=== PATIENT | male | born 1975 | race American Indian/Alaskan Native ===

== ENCOUNTER 2018-07-09 18:24 | Inpatient (IN) | payer MEDICARE ==
[2018-07-09] MEDS ORDERED: BENADRYL IM PRN (19:17)
[2018-07-09 19:18] LABS: Basophils % (Auto) 0.4 % (0.0-1.8); Eosinophils # (Auto) 0.2 K/mm3 (0.0-0.4); Eosinophils % (Auto) 2.1 % (0.0-4.3); Hematocrit 46.6 % (35.5-45.6); Hemoglobin 15.4 gm/dl (11.8-15.2); Lymphocytes # (Auto) 3.8 K/mm3 (1.2-5.4); Lymphocytes % (Auto) 39.6 % (13.4-35.0); Mean Corpuscular HGB Conc 33 % (32-34); Mean Corpuscular Volume 90 fl (84-94); Monocytes # (Auto) 0.7 K/mm3 (0.0-0.8); Monocytes % (Auto) 6.8 % (0.0-7.3); Platelet Count 266 K/mm3 (140-440); Red Blood Count 5.19 M/mm3 (3.65-5.03); Red Cell Distribution Width 16.7 % (13.2-15.2)
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
[2018-07-09 19:34] LABS: BUN/Creatinine Ratio 8; Blood Urea Nitrogen 9 mg/dL (9-20); Calcium 9.2 mg/dL (8.4-10.2); Hemolysis Index 4
--- NOTE | 2018-07-09 20:34 | XRay Report ---
FINAL REPORT EXAM: XR CHEST 1V AP HISTORY: cough TECHNIQUE: Frontal portable view of the chest Comparison: None FINDINGS: There is bilateral hypoinflation. There appear to be patchy areas of pulmonary consolidation in both lungs. There is no evidence of pneumothorax and no definite evidence of pleural effusion. There is prominence of the pulmonary venous vasculature suggestive of pulmonary venous congestion. The cardiac silhouette appears to be enlarged. This may be exaggerated by portable technique and hypo inflation. The bony structures are unremarkable. Visualization detail of the thoracic spine is limited. IMPRESSION: 1. Hypoinflation with the appearance of areas of bilateral pulmonary consolidation. Atelectasis versu s infiltrates versus pulmonary edema. 2. Enlarged cardiac silhouette and evidence of pulmonary venous congestion. PA and lateral views of the chest or CT chest may be helpful for further evaluation.
[2018-07-09] MEDS ORDERED: VITAMIN B-1 100 MG, FOLVITE 1 MG, INFUVITE 10 ML, MAGNESIUM SULFATE 2 GM in NACL 0.9% 1... IV ONE (20:52)
[2018-07-09 21:30] LABS: Bilirubin,Urine NEG (Negative); Blood,Urine NEG (Negative); Color,Urine Colorless (Yellow); Protein,Urine <15 mg/dL mg/dL (Negative); RBC,Urine < 1.0 /HPF (0.0-6.0); Urobilinogen,Urine < 2.0 mg/dL (<2.0); WBC,Urine < 1.0 /HPF (0.0-6.0)
[2018-07-09 21:39] LABS: Amphetamine Screen,Urine PRESUMPTIVE NEGATIVE; Benzodiazepines Screen,Urine PRESUMPTIVE NEGATIVE; Cannabinoid Screen,Urine PRESUMPTIVE NEGATIVE; Cocaine Screen,Urine PRESUMPTIVE NEGATIVE; Methadone Screen,Urine PRESUMPTIVE NEGATIVE; Opiate Screen,Urine PRESUMPTIVE NEGATIVE
[2018-07-09] MEDS ORDERED: VITAMIN B-1 PO ONE (22:00)
[2018-07-09] MEDS ORDERED: FOLVITE 1 MG, INFUVITE 10 ML, MAGNESIUM SULFATE 2 GM in NACL 0.9% 1000 ML 1,000 ML IV ONE (22:00)
[2018-07-09] MEDS ORDERED: HALDOL IM PRN (23:07)
--- NOTE | 2018-07-10 00:23 | Cat Scan Report ---
FINAL REPORT EXAM: CT HEAD/BRAIN WO CON HISTORY: intoxicated, facial abrasion, altered mental statu COMPARISON: None available. TECHNIQUE: Axial images obtained skull base through vertex. FINDINGS: No acute intracranial hemorrhage, midline shift or pathologic extra axial fluid collection. Ventricle s and cisterns are normal in size and configuration for the patient's age. Perez-white differentiation preserved. Calvarium grossly intact. Ocular globes are grossly unremarkable. Moderate to severe poly poid mucosal thickening of the maxillary sinuses and ethmoid air cells. Mastoid air cells are clear. IMPRESSION: No grossly acute intracranial abnormality. Moderate to severe paranasal sinus disease.
--- NOTE | 2018-07-10 00:30 | Cat Scan Report ---
FINAL REPORT EXAM: CT CERVICAL SPINE WO CON HISTORY: intoxicated, facial abrasion, altered mental statu COMPARISON: None available. TECHNIQUE: Axial images obtained through the cervical spine. Additional sagittal and coronal reforma tted images were obtained. FINDINGS: Straightening of the normal lordotic curvature of the cervical spine. Cervical vertebral body heights are preserved. No acute fracture or traumatic subluxation. Odontoid process, articular pillars and o ccipital condyles are intact. No significant bony encroachment upon the canal or foramen. IMPRESSION: No acute fracture or subluxation of the cervical spine. There is straightening of the normal lordotic curvature which may relate to patient positioning or muscle spasm.
--- NOTE | 2018-07-10 01:23 | Cat Scan Report ---
FINAL REPORT EXAM: CT CHEST WO CON HISTORY: cough, abnormal chest x-ray COMPARISON: Chest x-ray from yesterday. TECHNIQUE: Contiguous axial images were obtained. Additional sagittal and coronal reformatted images were obtained. FINDINGS: Heart borderline enlarged. Thoracic aorta normal in caliber. There are borderline and mildly enlarged intrathoracic lymph nodes. For example there is a prevascular lymph node on the left measuring 17 x 10 millimeters. No enlarged axillary lymph nodes. No obstructive lesion centrally within the tracheob ronchial tree. Nodular airspace opacity with a bronchovascular distribution involving the right upper lobe. Small no dular airspace opacity medial margin right lower lobe. There are scattered linear ground-glass opacit ies throughout the lungs likely related to atelectasis. Lungs are underinflated. No pleural effusion. Visualized upper abdomen is grossly unremarkable. No pneumothorax or pneumomediastinum. Moderate dege nerative changes of the thoracic spine. Infrarenal IVC filter is in place. IMPRESSION: Findings concerning for pneumonia involving the right upper lobe and right lower lobe. Heart borderline enlarged. Borderline and mildly enlarged intrathoracic lymph nodes which may be reactive.
[2018-07-10] MEDS ORDERED: ZOSYN/NS 4.5GM/100ML 4.5 GM/100 ML VIAL IV ONE (01:34)
[2018-07-10] MEDS ORDERED: SODIUM CHLORIDE FLUSH SYRINGE 10 ML IV PRN (03:22)
[2018-07-10] MEDS ORDERED: ZOFRAN IV PRN (03:22)
[2018-07-10] MEDS ORDERED: TYLENOL PO PRN (03:22)
[2018-07-10 04:23] LABS: Basophils # (Auto) 0.1 K/mm3 (0.0-0.1); Basophils % (Auto) 0.9 % (0.0-1.8); Eosinophils # (Auto) 0.2 K/mm3 (0.0-0.4); Eosinophils % (Auto) 1.2 % (0.0-4.3); Hematocrit 42.8 % (35.5-45.6); Hemoglobin 13.8 gm/dl (11.8-15.2); Lymphocytes # (Auto) 4.5 K/mm3 (1.2-5.4); Mean Corpuscular HGB Conc 32 % (32-34); Mean Corpuscular Volume 91 fl (84-94); Monocytes # (Auto) 0.6 K/mm3 (0.0-0.8); Monocytes % (Auto) 4.5 % (0.0-7.3); Platelet Count 261 K/mm3 (140-440); Red Blood Count 4.71 M/mm3 (3.65-5.03); Red Cell Distribution Width 16.9 % (13.2-15.2)
[2018-07-10 04:45] LABS: BUN/Creatinine Ratio 8; Blood Urea Nitrogen 7 mg/dL (9-20); Calcium 8.2 mg/dL (8.4-10.2); Hemolysis Index 105
--- NOTE | 2018-07-10 05:59 | History and Physical Report ---
History of Present Illness Date of examination: 07/10/18 Date of admission: 07/10/18 03:22 History of present illness: 42-year-old man with a history of alcohol abuse was brought to the emergency room for evaluation. Patient was sedated in the emergency room because he was combative, unable to get a history. Review of systems unobtainable, the patient is being admitted for pneumonia PAST MEDICAL HISTORY: Alcohol abuse, unknown other medical problems PAST SURGICAL HISTORY: Unknown SOCIAL HISTORY:: + alcohol FAMILY HISTORY: Hypertension Medications and Allergies Allergies Allergy/AdvReac Type Severity Reaction Status Date / Time No Known Allergies Allergy Unverified 07/21/15 13:01 Active Meds: Active Medications Acetaminophen (Tylenol) 650 mg PO Q4H PRN PRN Reason: Pain MILD(1-3)/Fever >100.5/CORTEZ Albuterol/Ipratropium (Duoneb *Not For Prn Use*) 1 ampul IH Q6HRT GENIA Enoxaparin Sodium (Lovenox) 40 mg SUB-Q QDAY GENIA Ondansetron HCl (Zofran) 4 mg IV Q8H PRN PRN Reason: Nausea And Vomiting Sodium Chloride (Sodium Chloride Flush Syringe 10 Ml) 10 ml IV BID GENIA Sodium Chloride (Sodium Chloride Flush Syringe 10 Ml) 10 ml IV PRN PRN PRN Reason: LINE FLUSH Exam - Physical Exam Narrative exam: General Apperance: The patient lying in bed, breathing comfortable HEENT: Normocephalic, atraumatic. Pupils equally round and reactive to light, EOMI, no sclericterus or JVD or thyromegaly or nodule. , no carotid bruit, mucous membranes moist, no exudate or erythema Heart: S1-S2, regular is rhythm Lungs: Clear to auscultation bilaterally, breathing comfortable Abdomen: Positive bowel sounds, soft, nontender, nondistended, no organomegaly Extremities: No edema cyanosis clubbing Skin: no rash, nodule, warm and dry Neuro: sedated - Constitutional Vitals: Temp Pulse Resp BP Pulse Ox 97.5 F L 101 H 15 127/44 91 07/10/18 05:46 07/10/18 03:00 07/10/18 03:30 07/10/18 04:16 07/10/18 04:16 Results - Labs CBC & Chem 7: 07/10/18 04:04 07/10/18 04:04 Labs: Abnormal lab results 07/09/18 07/09/18 07/09/18 Range/Units 19:07 19:07 19:07 WBC (4.5-11.0) K/mm3 RBC (3.65-5.03) M/mm3 Hgb (11.8-15.2) gm/dl Hct (35.5-45.6) % RDW (13.2-15.2) % Lymph % (Auto) (13.4-35.0) % Seg Neutrophils # (1.8-7.7) K/mm3 Potassium (3.6-5.0) mmol/L Chloride (98-107) mmol/L BUN (9-20) mg/dL Glucose (75-100) mg/dL Calcium (8.4-10.2) mg/dL NT-Pro-B Natriuret Pep (0-450) pg/mL Ur Specific [place] (1.003-1.030) Salicylates < 0.3 L (2.8-20.0) mg/dL Acetaminophen < 5.0 L (10.0-30.0) ug/mL Plasma/Serum Alcohol 0.36 H (0-0.07) % 07/09/18 07/09/18 07/10/18 Range/Units 19:07 21:08 01:22 WBC (4.5-11.0) K/mm3 RBC 5.19 H (3.65-5.03) M/mm3 Hgb 15.4 H (11.8-15.2) gm/dl Hct 46.6 H (35.5-45.6) % RDW 16.7 H (13.2-15.2) % Lymph % (Auto) 39.6 H (13.4-35.0) % Seg Neutrophils # (1.8-7.7) K/mm3 Potassium (3.6-5.0) mmol/L Chloride (98-107) mmol/L BUN (9-20) mg/dL Glucose (75-100) mg/dL Calcium (8.4-10.2) mg/dL NT-Pro-B Natriuret Pep 450.7 H (0-450) pg/mL Ur Specific [place] 1.001 L (1.003-1.030) Salicylates (2.8-20.0) mg/dL Acetaminophen (10.0-30.0) ug/mL Plasma/Serum Alcohol (0-0.07) % 07/10/18 07/10/18 Range/Units 04:04 04:04 WBC 14.4 H (4.5-11.0) K/mm3 RBC (3.65-5.03) M/mm3 Hgb (11.8-15.2) gm/dl Hct (35.5-45.6) % RDW 16.9 H (13.2-15.2) % Lymph % (Auto) (13.4-35.0) % Seg Neutrophils # 9.0 H (1.8-7.7) K/mm3 Potassium 5.7 H D (3.6-5.0) mmol/L Chloride 109.1 H (98-107) mmol/L BUN 7 L (9-20) mg/dL Glucose 108 H (75-100) mg/dL Calcium 8.2 L (8.4-10.2) mg/dL NT-Pro-B Natriuret Pep (0-450) pg/mL Ur Specific [place] (1.003-1.030) Salicylates (2.8-20.0) mg/dL Acetaminophen (10.0-30.0) ug/mL Plasma/Serum Alcohol (0-0.07) % - Imaging and Cardiology Chest x-ray: report reviewed CT scan - chest: report reviewed CT Scan - head: report reviewed Assessment and Plan CT spine reviewed Assessment Sepsis Pneumonia, possible aspiration Alcohol intoxication Morbid obesity Plan Admit to medicine Start IV Zosyn, IV fluids, nebulizer treatments DVT prophylaxis
[2018-07-10] MEDS ORDERED: NACL 0.9% 1000 ML 1,000 ML IV SCH (06:00)
[2018-07-10] MEDS ORDERED: KIONEX PO ONE (06:00)
[2018-07-10] MEDS ORDERED: ZOSYN/NS 3.375GM/50ML 3.375 GM/50 ML BAG IV SCH (06:00)
[2018-07-10 07:52] LABS: BUN/Creatinine Ratio 9; Blood Urea Nitrogen 7 mg/dL (9-20); Calcium 8.3 mg/dL (8.4-10.2); Hemolysis Index 37
[2018-07-10] MEDS ORDERED: ATIVAN PO PRN ×3 (08:00→08:05)
--- NOTE | 2018-07-10 08:07 | Progress Note ---
Assessment and Plan Assessment and plan: Patient is a 42 yo man with a history of alcohol who presented to [facility] ED with AMS due to alcohol intoxication with BAL of 0.36. Nurse called me to report that patient is agitated, refusing IV placement and demanding to go home. Demanding food. -Acute toxic metabolic encephalopathy related to Alcohol -Alcohol intoxication: treat with Ativan, start CIWA protocol -Multilobar RUL and RLL Aspiration Pneumonia: iv zosyn ordered but patient refusing IVs, so I ordered PO Levaquin. -Sepsis Pneumonia, poa: treat with Abx, refusing IV fluids prolonged inpatient services 32 minutes History Interval history: Patient was seen and examined. Follow-up on current diagnosis of AMS due to alcohol. Overnight uneventful. Patient denies any chest pain, shortness breath, nausea/vomiting or severe headaches. Imaging, nursing note, chart, labs and old chart reviewed. Discussed with patient. Hospitalist Physical - Physical exam Narrative exam: Gen: WDWN, NAD, Awake, Alert, Orientated, bmi >40 HEENT: , abrasion on face, EOMI, PERRL, OP Clear Neck: supple, no adenopathy, no thyromegaly, no JVD CVS/Heart: Regular tachycardia, normal S1S2, pulses present bilaterally Chest/Lungs: coarse bs right lung, Symmetrical chest expansion, good air entry bilaterally GI/Abdomen: soft, NTND, good bowel sounds, no guarding or rebound /Bladder: no suprapubic tenderness, no CVA or paraspinal tenderness Extermity/Skin: no c/c/e, no obvious rash MSK: FROM x 4 Neuro: CN 2-12 grossly intact, no new focal deficits Psych: agitated - Constitutional Vitals: Temp Pulse Resp BP Pulse Ox 97.5 F L 101 H 15 127/44 91 07/10/18 05:46 07/10/18 03:00 07/10/18 03:30 07/10/18 04:16 07/10/18 04:16 Results - Labs CBC & Chem 7: 07/10/18 04:04 07/10/18 07:23 Labs: Laboratory Last Values WBC 14.4 K/mm3 (4.5-11.0) H 07/10/18 04:04 RBC 4.71 M/mm3 (3.65-5.03) 07/10/18 04:04 Hgb 13.8 gm/dl (11.8-15.2) 07/10/18 04:04 Hct 42.8 % (35.5-45.6) 07/10/18 04:04 MCV 91 fl (84-94) 07/10/18 04:04 MCH 29 pg (28-32) 07/10/18 04:04 MCHC 32 % (32-34) 07/10/18 04:04 RDW 16.9 % (13.2-15.2) H 07/10/18 04:04 Plt Count 261 K/mm3 (140-440) 07/10/18 04:04 Lymph % (Auto) 31.0 % (13.4-35.0) 07/10/18 04:04 Hand % (Auto) 4.5 % (0.0-7.3) 07/10/18 04:04 Eos % (Auto) 1.2 % (0.0-4.3) 07/10/18 04:04 Baso % (Auto) 0.9 % (0.0-1.8) 07/10/18 04:04 Lymph # 4.5 K/mm3 (1.2-5.4) 07/10/18 04:04 Hand # 0.6 K/mm3 (0.0-0.8) 07/10/18 04:04 Eos # 0.2 K/mm3 (0.0-0.4) 07/10/18 04:04 Baso # 0.1 K/mm3 (0.0-0.1) 07/10/18 04:04 Seg Neutrophils % 62.4 % (40.0-70.0) 07/10/18 04:04 Seg Neutrophils # 9.0 K/mm3 (1.8-7.7) H 07/10/18 04:04 Sodium 145 mmol/L (137-145) 07/10/18 07:23 Potassium 4.9 mmol/L (3.6-5.0) 07/10/18 07:23 Chloride 110.9 mmol/L (98-107) H 07/10/18 07:23 Carbon Dioxide 21 mmol/L (22-30) L 07/10/18 07:23 Anion Gap 18 mmol/L 07/10/18 07:23 BUN 7 mg/dL (9-20) L 07/10/18 07:23 Creatinine 0.8 mg/dL (0.8-1.5) 07/10/18 07:23 Estimated GFR > 60 ml/min 07/10/18 07:23 BUN/Creatinine Ratio 9 % 07/10/18 07:23 Glucose 82 mg/dL (75-100) 07/10/18 07:23 Calcium 8.3 mg/dL (8.4-10.2) L 07/10/18 07:23 NT-Pro-B Natriuret Pep 450.7 pg/mL (0-450) H 07/10/18 01:22 Urine Color Colorless (Yellow) 07/09/18 21:08 Urine Turbidity Clear (Clear) 07/09/18 21:08 Urine pH 6.0 (5.0-7.0) 07/09/18 21:08 Ur Specific [place] 1.001 (1.003-1.030) L 07/09/18 21:08 Urine Protein <15 mg/dl mg/dL (Negative) 07/09/18 21:08 Urine Glucose (UA) Neg mg/dL (Negative) 07/09/18 21:08 Urine Ketones Neg mg/dL (Negative) 07/09/18 21:08 Urine Blood Neg (Negative) 07/09/18 21:08 Urine Nitrite Neg (Negative) 07/09/18 21:08 Urine Bilirubin Neg (Negative) 07/09/18 21:08 Urine Urobilinogen < 2.0 mg/dL (<2.0) 07/09/18 21:08 Ur Leukocyte Esterase Neg (Negative) 07/09/18 21:08 Urine WBC (Auto) < 1.0 /HPF (0.0-6.0) 07/09/18 21:08 Urine RBC (Auto) < 1.0 /HPF (0.0-6.0) 07/09/18 21:08 U Epithel Cells (Auto) < 1.0 /HPF (0-13.0) 07/09/18 21:08 Salicylates < 0.3 mg/dL (2.8-20.0) L 07/09/18 19:07 Urine Opiates Screen Presumptive negative 07/09/18 21:08 Urine Methadone Screen Presumptive negative 07/09/18 21:08 Acetaminophen < 5.0 ug/mL (10.0-30.0) L 07/09/18 19:07 Ur Barbiturates Screen Presumptive negative 07/09/18 21:08 Ur Phencyclidine Scrn Presumptive negative 07/09/18 21:08 Ur Amphetamines Screen Presumptive negative 07/09/18 21:08 U Benzodiazepines Scrn Presumptive negative 07/09/18 21:08 Urine Cocaine Screen Presumptive negative 07/09/18 21:08 U Marijuana (THC) Screen Presumptive negative 07/09/18 21:08 Drugs of Abuse Note Disclamer 07/09/18 21:08 Plasma/Serum Alcohol 0.36 % (0-0.07) H 07/09/18 19:07
[2018-07-10] MEDS ORDERED: HALDOL IM PRN (08:30)
[2018-07-10] MEDS: DUONEB *Not for PRN Use IH SCH ×3 (09:02→19:12)
[2018-07-10] MEDS ORDERED: LOVENOX SUB-Q SCH (10:00)
[2018-07-10] MEDS: SODIUM CHLORIDE FLUSH SYRINGE 10 ML IV SCH ×2 (10:04→22:26)
[2018-07-10] MEDS: LEVAQUIN PO SCH (10:04)
[2018-07-10 14:36] LABS: BUN/Creatinine Ratio 9; Blood Urea Nitrogen 8 mg/dL (9-20); Calcium 8.6 mg/dL (8.4-10.2); Hemolysis Index 6
[2018-07-11] MEDS: DUONEB *Not for PRN Use IH SCH ×3 (02:02→13:45)
[2018-07-11 04:09] VITALS: BP 135/70
--- NOTE | 2018-07-11 07:07 | Progress Note ---
Assessment and Plan Assessment and plan: Patient is a 42 yo man with a history of tobacco dependency and alcohol abuse who presented to [facility] ED with AMS due to alcohol intoxication with BAL of 0.36. Patient continues to be uncooperative. He has no IV line access because he refuses. Overnight, his O2 sat dropped to 76% while sleeping but increased to 90% when he was awaken. He refused O2. He needs GABRIELE outpatient sleep study -Acute toxic metabolic encephalopathy related to Alcohol -Acute on chronic hypoxic respiratory failure most likely due to GABRIELE, most likely poa and chronic, undiagnosised, he refused O2 supplementation: GABRIELE respiratory therapy assessment ordered, Outpatient Pulm referral -Alcohol intoxication under 2013: treat with Ativan, started CIWA protocol, Mental health consult, [address] Souza, ED physician -Multilobar RUL and RLL Aspiration Pneumonia: iv zosyn ordered but patient refusing IVs, so I ordered PO Levaquin. -Sepsis Pneumonia, poa: treat with Abx, refusing IV fluids -Tobacco dependency: counseled on stopping, not well received Disposition: will discharge soon History Interval history: Patient was seen and examined. Follow-up on current diagnosis of AMS due to alcohol. Overnight eventful, sleep apnea type spells with loud snoring and O2 desat down to 76% per Nurse Emerita, whom I spoke with, patient refused to wear O2. Patient denies any chest pain, shortness breath, nausea/vomiting or severe headaches. Imaging, nursing note, chart, labs and old chart reviewed. Discussed with patient. Patient is under 2013 and was seen by Mental Health Hatch Supervisor yesterday. Hospitalist Physical - Physical exam Narrative exam: Gen: WDWN, NAD, Awake, Alert, Orientated, bmi 49 HEENT: EOMI, PERRL, OP Clear Neck: supple, no adenopathy, no thyromegaly, no JVD CVS/Heart: Regular tachycardia, normal S1S2, pulses present bilaterally Chest/Lungs: coarse bs right lung, Symmetrical chest expansion, good air entry bilaterally GI/Abdomen: soft, NTND, good bowel sounds, no guarding or rebound /Bladder: no suprapubic tenderness, no CVA or paraspinal tenderness Extermity/Skin: no c/c/e, no obvious rash MSK: FROM x 4 Neuro: CN 2-12 grossly intact, no new focal deficits Psych: poor insight - Constitutional Vitals: Temp Pulse Resp BP Pulse Ox 97.9 F 81 13 135/70 98 07/11/18 04:08 07/11/18 05:01 07/11/18 05:01 07/11/18 05:01 07/11/18 05:01 Results - Labs CBC & Chem 7: 07/10/18 04:04 07/10/18 14:00 Labs: Laboratory Last Values WBC 14.4 K/mm3 (4.5-11.0) H 07/10/18 04:04 RBC 4.71 M/mm3 (3.65-5.03) 07/10/18 04:04 Hgb 13.8 gm/dl (11.8-15.2) 07/10/18 04:04 Hct 42.8 % (35.5-45.6) 07/10/18 04:04 MCV 91 fl (84-94) 07/10/18 04:04 MCH 29 pg (28-32) 07/10/18 04:04 MCHC 32 % (32-34) 07/10/18 04:04 RDW 16.9 % (13.2-15.2) H 07/10/18 04:04 Plt Count 261 K/mm3 (140-440) 07/10/18 04:04 Lymph % (Auto) 31.0 % (13.4-35.0) 07/10/18 04:04 [place] % (Auto) 4.5 % (0.0-7.3) 07/10/18 04:04 Eos % (Auto) 1.2 % (0.0-4.3) 07/10/18 04:04 Baso % (Auto) 0.9 % (0.0-1.8) 07/10/18 04:04 Lymph # 4.5 K/mm3 (1.2-5.4) 07/10/18 04:04 [place] # 0.6 K/mm3 (0.0-0.8) 07/10/18 04:04 Eos # 0.2 K/mm3 (0.0-0.4) 07/10/18 04:04 Baso # 0.1 K/mm3 (0.0-0.1) 07/10/18 04:04 Seg Neutrophils % 62.4 % (40.0-70.0) 07/10/18 04:04 Seg Neutrophils # 9.0 K/mm3 (1.8-7.7) H 07/10/18 04:04 Sodium 144 mmol/L (137-145) 07/10/18 14:00 Potassium 4.3 mmol/L (3.6-5.0) 07/10/18 14:00 Chloride 106.6 mmol/L (98-107) 07/10/18 14:00 Carbon Dioxide 28 mmol/L (22-30) D 07/10/18 14:00 Anion Gap 14 mmol/L 07/10/18 14:00 BUN 8 mg/dL (9-20) L 07/10/18 14:00 Creatinine 0.9 mg/dL (0.8-1.5) 07/10/18 14:00 Estimated GFR > 60 ml/min 07/10/18 14:00 BUN/Creatinine Ratio 9 % 07/10/18 14:00 Glucose 104 mg/dL (75-100) H 07/10/18 14:00 Calcium 8.6 mg/dL (8.4-10.2) 07/10/18 14:00 NT-Pro-B Natriuret Pep 450.7 pg/mL (0-450) H 07/10/18 01:22 Urine Color Colorless (Yellow) 07/09/18 21:08 Urine Turbidity Clear (Clear) 07/09/18 21:08 Urine pH 6.0 (5.0-7.0) 07/09/18 21:08 Ur Specific [place] 1.001 (1.003-1.030) L 07/09/18 21:08 Urine Protein <15 mg/dl mg/dL (Negative) 07/09/18 21:08 Urine Glucose (UA) Neg mg/dL (Negative) 07/09/18 21:08 Urine Ketones Neg mg/dL (Negative) 07/09/18 21:08 Urine Blood Neg (Negative) 07/09/18 21:08 Urine Nitrite Neg (Negative) 07/09/18 21:08 Urine Bilirubin Neg (Negative) 07/09/18 21:08 Urine Urobilinogen < 2.0 mg/dL (<2.0) 07/09/18 21:08 Ur Leukocyte Esterase Neg (Negative) 07/09/18 21:08 Urine WBC (Auto) < 1.0 /HPF (0.0-6.0) 07/09/18 21:08 Urine RBC (Auto) < 1.0 /HPF (0.0-6.0) 07/09/18 21:08 U Epithel Cells (Auto) < 1.0 /HPF (0-13.0) 07/09/18 21:08 Salicylates < 0.3 mg/dL (2.8-20.0) L 07/09/18 19:07 Urine Opiates Screen Presumptive negative 07/09/18 21:08 Urine Methadone Screen Presumptive negative 07/09/18 21:08 Acetaminophen < 5.0 ug/mL (10.0-30.0) L 07/09/18 19:07 Ur Barbiturates Screen Presumptive negative 07/09/18 21:08 Ur Phencyclidine Scrn Presumptive negative 07/09/18 21:08 Ur Amphetamines Screen Presumptive negative 07/09/18 21:08 U Benzodiazepines Scrn Presumptive negative 07/09/18 21:08 Urine Cocaine Screen Presumptive negative 07/09/18 21:08 U Marijuana (THC) Screen Presumptive negative 07/09/18 21:08 Drugs of Abuse Note Disclamer 07/09/18 21:08 Plasma/Serum Alcohol 0.36 % (0-0.07) H 07/09/18 19:07
[2018-07-11] MEDS: LEVAQUIN PO SCH (12:48)
[2018-07-11] MEDS: SODIUM CHLORIDE FLUSH SYRINGE 10 ML IV SCH (12:48)
--- NOTE | 2018-07-11 15:11 | Discharge Summary ---
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 Patient continues to be uncooperative. He has no IV line access because he refuses. Overnight, his O2 sat dropped to 76% while sleeping but increased to 90% when he was awaken. He refused O2. He needs GABRIELE outpatient sleep study -Acute toxic metabolic encephalopathy related to Alcohol -Acute on chronic hypoxic respiratory failure most likely due to GABRIELE, most likely poa and chronic, undiagnosised, he refused O2 supplementation: GABRIELE respiratory therapy assessment ordered, Outpatient Pulm referral -Alcohol intoxication resolved, treat with Ativan, started CIWA protocol, Mental health consulted, [address] Souza, ED physician -Multilobar RUL and RLL Aspiration Pneumonia: iv zosyn ordered but patient refusing IVs, so I ordered PO Levaquin (pt states he has health insurance to afford meds) -Sepsis Pneumonia, poa: treat with Abx, refusing IV fluids -Tobacco dependency: counseled on stopping, not well received -Suspect GABRIELE: outpatient Pulm referral -Morbid Obesity: career technical counselor on weight reduction Disposition: DC-01 TO HOME OR SELFCARE Time spent for discharge: 35 minutes Core Measure Documentation - Palliative Care Palliative Care/ Comfort Measures: Not Applicable - Core Measures Any of the following diagnoses?: none - VTE Discharge Requirements Deep Vein Thrombosis/Pulmonary Embolism Present on Admission: No Has pt received <5 days of overlap therapy or INR<2.0: No Anticoagulant overlap therapy prescribed at discharge: No Contraindication No Overlap Therapy order at DC: Not Indicated Exam - Physical Exam Narrative exam: Gen: WDWN, NAD, Awake, Alert, Orientated, bmi 49 HEENT: EOMI, PERRL, OP Clear Neck: supple, no adenopathy, no thyromegaly, no JVD CVS/Heart: Regular tachycardia, normal S1S2, pulses present bilaterally Chest/Lungs: coarse bs right lung, Symmetrical chest expansion, good air entry bilaterally GI/Abdomen: soft, NTND, good bowel sounds, no guarding or rebound /Bladder: no suprapubic tenderness, no CVA or paraspinal tenderness Extermity/Skin: no c/c/e, no obvious rash MSK: FROM x 4 Neuro: CN 2-12 grossly intact, no new focal deficits Psych: poor insight - Constitutional Vitals: Temp Pulse Resp BP Pulse Ox 98.2 F 91 H 14 135/70 93 07/11/18 12:00 07/11/18 13:46 07/11/18 13:46 07/11/18 13:01 07/11/18 12:00 Plan Activity: other (no strenous activity) Diet: regular Special Instructions: smoking cessation Additional Instructions: You need a sleep study, make an Appointment with Dr. Mckeon Follow up with: EKTA EM MD [Primary Care Provider] - 3-5 Days [facility] [Provider Group] - 7 Days CATHERINE MCKEON MD [Staff Physician] - 7 Days Prescriptions: ALBUTEROL Inhaler(NF) [VENTOLIN Inhaler(NF)] 2 puff IH Q4H PRN #1 unit PRN Reason: Shortness Of Breath guaiFENesin/CODEINE [Robitussin AC] 5 ml PO Q12H PRN 7 Days oral.liqd PRN Reason: Cough levoFLOXacin [Levaquin TAB] 750 mg PO Q24HR #6 tablet
== END 2018-07-11 16:25 | disposition home or self-care (01) | DRG 871 ==
LOC: ED 18:24 → 4A 07-10 03:22 → IMCU 07-10 05:17
PROVIDERS: ADMIT Internal Medicine; ATTEND Internal Medicine
DX: A41.9 Sepsis, unspecified organism (principal); G92 Toxic encephalopathy; J96.21 Acute and chronic respiratory failure with hypoxia; J69.0 Pneumonitis due to inhalation of food and vomit; Z68.42 Body mass index [BMI] 45.0-49.9, adult; E66.01 Morbid (severe) obesity due to excess calories; Y90.1 Blood alcohol level of 20-39 mg/100 ml; F10.129 Alcohol abuse with intoxication, unspecified; Z82.49 Family history of ischemic heart disease and other diseases of the circulatory system; G47.33 Obstructive sleep apnea (adult) (pediatric); Z71.6 Tobacco abuse counseling; Z71.3 Dietary counseling and surveillance
CPT/HCPCS: 36415; 70450; 71045; 71250; 72125; 80048; 80307; 80320; 81001; 83880; 85025; 94640; 94760; G0378; G0480; J1200; J1630; J2543; J3411; J3475; J7030